=== PATIENT | male | born 1975 | race Caucasian/White ===

== ENCOUNTER 2017-12-20 14:09 | Day surgery (SDC) | payer OTHER ==
[~2017-12-20] VITALS: Ht 182.9 cm; Wt 96.3 kg
[2017-12-20] MEDS ORDERED: OMEPRAZOLE20 MG (15:31)
[2017-12-20] MEDS ORDERED: HYDCHL12.5 (15:31)
[2017-12-20] MEDS ORDERED: SERT25 (15:32)
== END 2017-12-20 17:10 | disposition home or self-care (01) ==
LOC: ORSCSDS 14:09 → ORSC 14:38 → ORSCSDS 15:03 → ORSC 01-20 12:06
PROVIDERS: Student in an Organized Health Care Education/Training Program
PROC: 0DB68ZX Excision of Stomach, Via Natural or Artificial Opening Endoscopic, Diagnostic (ICD-10-PCS; principal; 2017-12-20 15:30)
PROC: 0DB58ZX Excision of Esophagus, Via Natural or Artificial Opening Endoscopic, Diagnostic (ICD-10-PCS; principal; 2017-12-20 15:30)
PROC: 0D758ZZ Dilation of Esophagus, Via Natural or Artificial Opening Endoscopic (ICD-10-PCS; principal; 2017-12-20 15:30)
DX: R13.10 Dysphagia, unspecified (principal); K21.0 Gastro-esophageal reflux disease with esophagitis; K22.2 Esophageal obstruction; K44.9 Diaphragmatic hernia without obstruction or gangrene; I10 Essential (primary) hypertension; Z79.899 Other long term (current) drug therapy; Z87.891 Personal history of nicotine dependence
CPT/HCPCS: C1726; J7120

== ENCOUNTER 2018-05-27 08:42 | Day surgery (SDC) | payer OTHER ==
[~2018-05-27 08:42] MED LIST: HYDCHL12.5; OMEPRAZOLE20 MG; SERT25
== END 2018-05-27 12:01 | disposition home or self-care (01) ==
LOC: RAD 08:42 → CT 10:00 → RAD 12:01
DX: M48.02 Spinal stenosis, cervical region (principal); R29.898 Other symptoms and signs involving the musculoskeletal system; R20.2 Paresthesia of skin; R53.1 Weakness; M25.78 Osteophyte, vertebrae; M99.51 Intervertebral disc stenosis of neural canal of cervical region
CPT/HCPCS: 62302; 72126; Q9967

== ENCOUNTER → 2021-12-28 | Outpatient (CLI) | payer SELFPAY ==
[2021-12-28 11:17] LABS: Bun/Creatinine Ratio 23.9 (12.0-20.0); Calcium, Blood 9.2 mg/dL (8.5-10.1); Creatinine, Blood 0.88 mg/dL (0.60-1.20); Potassium, Blood 3.8 mmol/L (3.5-5.5)
== END | disposition home or self-care (01) ==
LOC: LAB SHORT 09:52
PROVIDERS: Internal Medicine
DX: I10 Essential (primary) hypertension (principal)
CPT/HCPCS: 80048

== ENCOUNTER → 2023-02-22 | Outpatient (CLI) | payer SELFPAY ==
[2023-02-22 12:08] LABS: Anion Gap 5 mmol/L (6-16); Blood Urea Nitrogen 23 mg/dL (8-24); Bun/Creatinine Ratio 25.1 (12.0-20.0); CHOL/HDL RATIO 3.8; CO2, Blood 26 mmol/L (21-32); Calcium, Blood 8.9 mg/dL (8.5-10.1); Chloride, Blood 104 mmol/L (98-108); Cholesterol 203 mg/dL (50-200); Creatinine, Blood 0.92 mg/dL (0.60-1.20); Glomerular Filtration Rate 103 (60-); Glucose, Blood 99 mg/dL (70-99); HDL Cholesterol 53 mg/dL (>39); LDL/HDL RATIO 2.5; Low Density Lipoprotein Chol 134 mg/dL (0-110); Potassium, Blood 3.7 mmol/L (3.5-5.5); Sodium, Blood 135 mmol/L (136-145); Triglycerides 79 mg/dL (30-160); Very Low Density Lipoprot Chol 15 mg/dL (6-32)
== END ==
LOC: LAB SHORT 07:15 → LAB 07:15
PROVIDERS: Internal Medicine
DX: I10 Essential (primary) hypertension (principal)
CPT/HCPCS: 80048; 80061